=== PATIENT | male | born 1975 | race Caucasian/White ===

== ENCOUNTER 2022-09-06 13:11 | Outpatient (CLI) | payer OTHER, SELFPAY ==
[2022-09-06 12:34] LABS: Albumin* 4.8 g/dL (3.3-5.0)
[2022-09-06 12:35] LABS: Chloride* 104 mmol/L (96-114); Potassium* 4.5 mmol/L (3.6-5.1); Sodium* 137 mmol/L (135-149)
[2022-09-06 12:37] LABS: Cholesterol* 243 mg/dL (90-199); Creatinine* 0.9 mg/dL (0.5-1.5); Estimated Glomerular Filt Rate 107 ml/min
[2022-09-06 12:38] LABS: Alanine Aminotransferase* 74 U/L (4-50); Alkaline Phosphatase* 80 U/L (40-150); Aspartate Amino Transferase* 53 U/L (12-35); Bilirubin Total* 0.8 mg/dL (0.1-1.5); Blood Urea Nitrogen* 11 mg/dL (5-24); Calcium* 9.5 mg/dL (8.4-10.6); Carbon Dioxide* 24 mmol/L (20-32); HDL Cholesterol* 72 mg/dL (>=40); LDL Cholesterol Calculated 136 mg/dL (<100); Total Protein* 7.7 g/dL (6.0-8.3); Triglycerides* 173 mg/dL (40-149)
[2022-09-06 13:41] LABS: Glucose* 107 mg/dL (60-115)
== END 2022-09-06 13:12 | disposition home or self-care (01) ==
PROVIDERS: PCP Family Medicine; Visit Provider Family Medicine
DX: E78.5 Hyperlipidemia, unspecified (principal); R73.01 Impaired fasting glucose; F41.9 Anxiety disorder, unspecified
CPT/HCPCS: 80053; 80061

== ENCOUNTER 2022-12-19 06:40 | Outpatient (CLI) | payer OTHER, SELFPAY ==
--- NOTE | 2022-12-19 07:53 | W.ANESCHARGE ---
Anesthesia Charges Start Date/Time Anesthesia Start Date: 12/19/22 Anesthesia Start Time: 07:42 Stop Date/Time Anesthesia Stop Date: 12/19/22 Anesthesia Stop Time: 08:15
--- NOTE | 2022-12-19 08:19 | W.ANESCHARGE ---
Anesthesia Charges Start Date/Time Anesthesia Start Date: 12/19/22 Anesthesia Start Time: 07:42 Stop Date/Time Anesthesia Stop Date: 12/19/22 Anesthesia Stop Time: 08:15
== END 2022-12-19 06:41 | disposition home or self-care (01) ==
LOC: OP CLINIC 06:40
PROVIDERS: PCP Family Medicine; Visit Provider Internal Medicine
DX: Z12.11 Encounter for screening for malignant neoplasm of colon (principal); K63.5 Polyp of colon
CPT/HCPCS: 00811; 45380; 45385; 88305; J2704